=== PATIENT | female | born 2000 | race Caucasian/White ===

== ENCOUNTER 2023-11-06 15:35 | Emergency (ER) | payer BC, SELFPAY ==
[2023-11-06 15:54] VITALS: BP 125/73; PULSE 80; RESP 16; TEMP 36.8; O2SAT 98; BMI 22.0
--- NOTE | 2023-11-06 16:13 | ED.ABDPAIN ---
HPI - Abdominal Pain General Chief Complaint: Abdominal Pain Stated Complaint: Pain in center of ab-Stiff back-PCP referred Time Seen by Provider: 11/06/23 16:00 History of Present Illness HPI narrative: This 23-year-old female comes in reporting upper epigastric pain that began this morning and became very severe. Since then it has been coming and going and seems to be a bit related to taking food. Currently she is not having any pain. She does not describe any fevers, nausea, vomiting, diarrhea, or dysuria. She has otherwise been in good health. Related Data Home Medications Medication Instructions Recorded Confirmed oxcarbazepine 600 mg tablet 600 mg PO BID 04/29/22 11/06/23 ubrogepant 100 mg tablet (Ubrelvy) 100 mg PO ONCE PRN 04/29/22 11/06/23 Previous Rx's Medication Instructions Recorded dapsone 5 % topical gel 1 applic topical BID #90 grams 07/03/23 doxycycline hyclate 100 mg tablet 100 mg PO BID #180 tabs 07/03/23 metformin 500 mg tablet 500 mg PO BID #180 tabs 07/03/23 tazarotene 0.1 % topical cream 1 applic topical QDAY #60 grams 07/03/23 (Tazorac) hydrocodone 5 mg-acetaminophen 325 1 tab PO Q4-6H PRN pain #15 tabs 11/06/23 mg tablet ketorolac 10 mg tablet 10 mg PO Q8H 5 days #15 tabs 11/06/23 Allergies Allergy/AdvReac Type Severity Reaction Status Date / Time COVID-19 vaccine, Allergy Intermediate Hives Verified 11/06/23 15:50 Ad26.COV2.S (Jans sulfamethoxazole Allergy Intermediate Hives Verified 11/06/23 15:50 [From Bactrim] trimethoprim [From Bactrim] Allergy Intermediate Hives Verified 11/06/23 15:50 Review of Systems Status of ROS Reports: 10 or more systems reviewed and unremarkable except as noted in History and below Narrative Constitutional: No fevers, no weight gain or loss. Eyes: No discharge. No vision changes. HENT: No congestion, no sore throat, no ear pain. Cardiovascular: No chest pain, no palpitations. Respiratory: No shortness of breath, no wheezes, no cough. Gastrointestinal: No vomiting, no diarrhea. Upper epigastric abdominal pain as described above. Genitourinary: No dysuria, no hematuria. Musculoskeletal: Normal range of motion. Skin: No rashes, no pruritis. Neurological: No dizziness, weakness, sensory change, speech change. Endo/Heme/Allergies: No bruising or bleeding. No polydipsia. Pysch: no suicidality, no anxiety, no insomnia. All other systems reviewed and are negative. [facility] Medical History (Updated 11/06/23 @ 18:14 by Fly Beasley MD) Sudden hearing loss (10/2021) ?H91.20 - Sudden idiopathic hearing loss, unspecified ear (ICD-10) Seizure disorder ?G40.909 - Epilepsy, unspecified, not intractable, without status epilepticus (ICD-10) Acne ?L70.9 - Acne, unspecified (ICD-10) Surgical History (Updated 09/18/23 @ 12:36 by Mary Mendenhall) History of tonsillectomy and adenoidectomy (11/20/18) ?Z90.89 - Acquired absence of other organs (ICD-10) Family History (Updated 09/18/23 @ 12:41 by Mary Mendenhall) Mother Multiple sclerosis Bipolar disorder Maternal Grandmother Breast cancer Social History Smoking Status: Never smoker Do you use any of these nicotine containing products: None How often do you have a drink containing alcohol: never How often do you have six or more drinks on one occasion: Never AUDIT-C Alcohol total score: 0 Non-prescribed substance use: denies use Exam Narrative: Exam Narrative: Constitutional: Well-developed, well-nourished, no acute distress. HEENT: Normocephalic, atraumatic. Neck: Normal range of motion. Nontender. Supple. Heart: Regular. No murmurs. Normal rate. Intact distal pulses. Lungs: Clear to auscultation. No chest discomfort. No wheezes, rhonchi, or rales. Abdomen: Normal bowel sounds. Nontender. No rebound tenderness. Genitalia: Deferred. Back: No midline tenderness. Normal range of motion. Extremities: Normal range of motion. No injury. Skin: Intact. No rash. Warm. No erythema or pallor. Neurologic: No altered sensation. No weakness. Alert and oriented. Nursing notes and vitals signs are reviewed. Const: Vital Signs, click to edit/add: Vital Signs - 24 hr 11/06/23 15:54 Temperature 98.3 F Pulse Rate [Pulse Oximeter] 80 Respiratory Rate 16 Blood Pressure [Ri ght Upper Arm] 125/73 Pulse Oximetry 98 Oxygen Delivery Me thod Room Air Course Vital Signs Vital signs: Initial Vital Signs Temperature 98.3 F 11/06/23 15:54 Temperature Source Temporal Artery Scan 11/06/23 15:54 Pulse Rate 80 11/06/23 15:54 Pulse Rhythm Regular 11/06/23 15:54 Pulse Strength 3+ Normal 11/06/23 15:54 Respiratory Rate 16 11/06/23 15:54 Blood Pressure 125/73 11/06/23 15:54 Blood Pressure Mean 90 11/06/23 15:54 Blood Pressure Position Sitting 11/06/23 15:54 Pulse Oximetry 98 11/06/23 15:54 Oxygen Delivery Method Room Air 11/06/23 15:54 Vital Signs Temperature 98.3 F 11/06/23 15:54 Pulse Rate 80 11/06/23 15:54 Respiratory Rate 16 11/06/23 15:54 Blood Pressure 125/73 11/06/23 15:54 Pulse Oximetry 98 11/06/23 15:54 Oxygen Delivery Method Room Air 11/06/23 15:54 Temperature 98.3 F 11/06/23 15:54 Pulse Rate 80 11/06/23 15:54 Respiratory Rate 16 11/06/23 15:54 Blood Pressure 125/73 11/06/23 15:54 Pulse Oximetry 98 11/06/23 15:54 Oxygen Delivery Method Room Air 11/06/23 15:54 MDM - Abdominal Pain MDM Narrative Medical decision making narrative: This patient comes in with recurrent severe abdominal pain in the upper epigastric region that began this morning. She states that this pain seems to be related to taking food. She arrives here with no pain currently and has normal vital signs. Ultrasound of the right upper quadrant does show an evidence of a large stone with some sludging of the bile. Common bile duct and gallbladder wall are normal. Lab results are acquired and she is not showing any sign of obstruction or infection. Additionally her lipase level is normal. This patient is okay to be discharged home and is encouraged to make a follow-up appointment with surgery Clinic. She did received prescription for 15 tablets each of [place] and Toradol for pain relief. Lab Data Labs: Lab Results 11/06/23 Range/Units 17:00 WBC 8.73 (4.50-11.00) K/uL RBC 4.83 (4.00-5.20) m/uL Hgb 15.0 (12.0-16.0) gm/dL Hct 43.0 (33.0-51.0) % MCV 89 (80-100) fL MCH 31 (26-34) pg MCHC 35 (32-36) gm/dL RDW Coeff of Kavin 11.5 (11.5-15.5) % Plt Count 271 (140-440) K/uL Neut % (Auto) 69.7 (42.0-72.0) % Lymph % (Auto) 24.6 (20-44) % [place] % (Auto) 5.6 (0.0-11.0) % Eos % (Auto) 0.0 (0.0-7.0) % Baso % (Auto) 0.0 (0.0-3.0) % Neut # (Auto) 6.08 (1.7-7.0) K/uL Lymph # (Auto) 2.15 (0.90-2.90) K/uL [place] # (Auto) 0.50 (0.00-0.90) K/UL Eos # (Auto) 0.00 (0.00-0.50) K/uL Baso # (Auto) 0.00 (0.00-0.30) K/uL Abs Immat Gran (auto) 0.01 (0.00-0.30) K/uL Imm/Tot Granulo (auto) 0.1 % Sodium 137 (135-149) mmol/L Potassium 4.1 (3.6-5.1) mmol/L Chloride 102 (96-114) mmol/L Carbon Dioxide 23 (20-32) mmol/L Anion Gap 12 (7-15) mEq/L BUN 9 (5-24) mg/dL Creatinine 0.5 (0.5-1.5) mg/dL Estimated Creat Clear 175.02 Estimated GFR 134 ml/min Glucose 101 (60-115) mg/dL Calcium 9.5 (8.4-10.6) mg/dL Total Bilirubin 0.5 (0.1-1.5) mg/dL Direct Bilirubin 0.2 (0.0-0.5) mg/dL AST 30 (12-35) U/L ALT 44 H (4-35) U/L Alkaline Phosphatase 59 (40-150) U/L Total Protein 8.0 (6.0-8.3) g/dL Albumin 5.2 H (3.3-5.0) g/dL Lipase 123 (23-300) U/L Discharge Plan Discharge Clinical Impression: Cholelithiasis Patient Disposition: Home, Self-Care Condition: Stable Additional Instructions: Take medication as prescribed and needed. Follow up with surgery Clinic for ongoing management. Call [phone] for appointment. Return if worsening. Prescriptions: New hydrocodone-acetaminophen 5-325 mg tablet 1 tab PO Q4-6H PRN (Reason: pain) Qty: 15 0RF ketorolac 10 mg tablet 10 mg PO Q8H 5 Days Qty: 15 0RF No Action oxcarbazepine 600 mg tablet 600 mg PO BID Ubrelvy 100 mg tablet 100 mg PO ONCE PRN metformin 500 mg tablet 500 mg PO BID Qty: 180 3RF doxycycline hyclate 100 mg tablet 100 mg PO BID Qty: 180 3RF dapsone 5 % gel 1 applic topical BID Qty: 90 1RF Rx Instructions: rub in gently and completely tazarotene [Tazorac] 0.1 % cream 1 applic topical QDAY Qty: 60 1RF Follow Up/Referrals: Darleen Dillard PA-C [Primary Care Provider] - Stand Alone Forms: [facility] Info Instructions
--- NOTE | 2023-11-06 16:33 | CRLHL7_ITS ---
For Patients: As a result of the Century Cures Act, medical imaging exams and procedure reports are released immediately into your electronic medical record. You may view this report before your referring provider. If you have questions, please contact your health care provider. INDICATION: Right upper quadrant abdomen pain. TECHNIQUE: Ultrasound abdomen limited. Sonographic images of the right upper quadrant were obtained using atkinson-scale and color flow images. COMPARISON: None. FINDINGS: Liver: Normal in size and echotexture. No suspicious masses. No intrahepatic biliary dilatation. Portal vein is patent with color-flow. Gallbladder: Gallstones present. Normal wall thickness. No pericholecystic fluid. Common bile duct: 3 mm. Pancreas: Visualized portions are grossly unremarkable. Right kidney: Normal in size. Normal echotexture and cortex. No suspicious masses, stones, or hydronephrosis. Vasculature: Proximal abdominal aorta and IVC are unremarkable. IMPRESSION: Cholelithiasis. Dictated by Oscar Morrison MD @ 11/06/2023 5:27:49 PM (Electronically Signed)
[2023-11-06 17:10] LABS: Immature Granulocytes Abs Auto 0.01 K/uL (0.00-0.30); Immature Granulocytes Pct Auto 0.1 %; Lymphocytes Absolute Auto 2.15 K/uL (0.90-2.90); Lymphocytes Percent Auto 24.6 % (20-44); Mean Corpuscular HGB Conc 35 gm/dL (32-36); Mean Corpuscular Hemoglobin 31 pg (26-34); Mean Corpuscular Volume 89 fL (80-100); Monocytes Percent Auto 5.6 % (0.0-11.0); Neutrophils Absolute Auto 6.08 K/uL (1.7-7.0); Neutrophils Percent Auto 69.7 % (42.0-72.0); Platelet Count* 271 K/uL (140-440); RDW Coefficient of Variation % 11.5 % (11.5-15.5); Red Blood Count 4.83 m/uL (4.00-5.20); White Blood Count* 8.73 K/uL (4.50-11.00)
[2023-11-06 17:20] LABS: Albumin* 5.2 g/dL (3.3-5.0); Chloride* 102 mmol/L (96-114); Potassium* 4.1 mmol/L (3.6-5.1); Sodium* 137 mmol/L (135-149)
[2023-11-06 17:23] LABS: Alkaline Phosphatase* 59 U/L (40-150); Anion Gap 12 mEq/L (7-15); Aspartate Amino Transferase* 30 U/L (12-35); Bilirubin Direct* 0.2 mg/dL (0.0-0.5); Bilirubin Total* 0.5 mg/dL (0.1-1.5); Blood Urea Nitrogen* 9 mg/dL (5-24); Calcium* 9.5 mg/dL (8.4-10.6); Carbon Dioxide* 23 mmol/L (20-32); Creatinine* 0.5 mg/dL (0.5-1.5); Est. Creatinine Clearance* 175.02; Estimated Glomerular Filt Rate 134 ml/min; Glucose* 101 mg/dL (60-115); Lipase* 123 U/L (23-300)
[2023-11-06 17:24] LABS: Alanine Aminotransferase* 44 U/L (4-35); Slide Review Reflex No
== END 2023-11-06 18:20 | disposition home or self-care (01) ==
PROVIDERS: Emergency Provider Emergency Medicine Emergency Medical Services; PCP Physician Assistant Medical
DX: K80.20 Calculus of gallbladder without cholecystitis without obstruction (principal)
CPT/HCPCS: 36415; 76705; 80048; 80076; 83690; 85025; 99284

== ENCOUNTER 2023-12-01 12:35 | Day surgery (SDC) | payer BC, SELFPAY ==
[2023-12-01] VITALS (12 sets, daily range): BP systolic 100–135; BP diastolic 58–84; PULSE 54–85; RESP 16–18; TEMP 36.3–37.1; O2SAT 98–100; BMI 21.9
[2023-12-01] MEDS: LACTATED RINGERS 1000 ML 1,000 ML 100 ML IV (13:29)
[2023-12-01] MEDS: SODIUM CHLORIDE 0.9 % (FLUSH) 10 ML SYRINGE IVF (13:29)
--- NOTE | 2023-12-01 13:36 | W.ANESCHARGE ---
Anesthesia Charges Start Date/Time Anesthesia Start Date: 12/01/23 Anesthesia Start Time: 13:42 Stop Date/Time Anesthesia Stop Date: 12/01/23 Anesthesia Stop Time: 14:56
[2023-12-01] MEDS: CEFAZOLIN 1 GM inj IVP (13:51)
[2023-12-01] MEDS: BUPIVACAINE 0.25% 30 ML INJECTION (14:39)
--- NOTE | 2023-12-01 14:58 | W.ANESCHARGE ---
Anesthesia Charges Start Date/Time Anesthesia Start Date: 12/01/23 Anesthesia Start Time: 13:42 Stop Date/Time Anesthesia Stop Date: 12/01/23 Anesthesia Stop Time: 14:56
[2023-12-01] MEDS: fentaNYL 100 MCG/2 ML inj 50 MCG IVP (15:04)
[2023-12-01] MEDS: HYDROCODONE-ACETAMIN 5-325 MG 1 TAB PO ×2 (15:34→16:24)
--- NOTE | 2023-12-01 15:40 | W.PM.H&PU ---
History & Physical Update History & Physical Update H&P Reviewed and patient assessed: No changes noted
--- NOTE | 2023-12-01 15:41 | P.GSOP_ITS ---
Operative Note Date of procedure: 12/01/23 Pre-op diagnosis: Biliary colic Post-op diagnosis: Same Type of Procedure: Laparoscopic cholecystectomy Indications: The patient is a 23-year-old female who developed right upper quadrant pain. Workup revealed cholelithiasis. After discussion of symptoms an options she was offered cholecystectomy and she agreed to proceed. Procedure Description: After discussing the risks and benefits of the procedure, the patient signed informed consent.? The operative site was marked and the patient was brought to the operating room and placed on the operating table in supine position.? Care was taken to pad the patient's pressure points.?? The patient was then intubated by anesthesia.?? The operative site was then prepped and draped in the usual sterile fashion.? A time-out was then performed. Entrance to the abdomen was gained via a 5 mm Visiport in the left upper quadrant. The abdomen was insufflated and briefly surveyed for signs of injury. There was none. A 10 mm umbilical port was placed as well as 2 working ports along the right costal margin, all under direct vision. The patient was then placed in reverse Trendelenburg position with the right side up. The gallbladder fundus was grasped and retracted cephalad. The infundibulum was grasped. A combination of hook cautery and blunt dissection was used to carefully dissect out the cystic duct and artery until they could clearly be seen entering the gallbladder without any intervening structures. The gallbladder was dissected off the cystic plate to achieve the critical view. Once this was achieved the cystic duct and artery were each clipped with 2 clips proximally and 1 clip di stally and transected with the scissors. The gallbladder was then taken off of the liver bed and removed from the abdomen using an Endo-Catch bag. The gallbladder bed was surveyed for hemostasis which appeared adequate. The ports were removed and the umbilical port fascia was closed with 0 Vicryl. The skin was closed with absorbable subcuticular suture. Instrument sponge and needle counts were correct at the end of the case. The patient was then woken and transferred to the PACU in stable condition. Sterile dressings were then applied ? The patient tolerated the procedure well. Findings: Cholelithiasis without evidence of acute cholecystitis Anesthesia: GETA Surgeon: Audra Casillas MD Estimated blood loss (mL): 5 Specimen: Gallbladder Condition: stable Disposition: PACU
== END 2023-12-01 17:07 | disposition home or self-care (01) ==
PROVIDERS: Surgery; PCP Physician Assistant Medical; Visit Provider Surgery
PROC: 0FT44ZZ Resection of Gallbladder, Percutaneous Endoscopic Approach (ICD-10-PCS; CPT 47562; principal; 2023-12-01 13:15)
DX: K80.10 Calculus of gallbladder with chronic cholecystitis without obstruction (principal)
CPT/HCPCS: 47562; 00790; 81025; 88304; A9270; J0330; J0665; J0690; J1885; J2250; J2704; J2710; J3010; J7120

== ENCOUNTER 2023-12-23 11:28 | Outpatient (CLI) | payer BC, SELFPAY | END 2023-12-23 11:29 | disposition home or self-care (01) | PROVIDERS: PCP Physician Assistant Medical; Visit Provider Surgery | DX: R10.13 Epigastric pain (principal); Z90.49 Acquired absence of other specified parts of digestive tract | CPT/HCPCS: 80076 ==

== ENCOUNTER 2023-12-29 11:48 | Outpatient (CLI) | payer BC, SELFPAY | END 2023-12-29 11:49 | disposition home or self-care (01) | LOC: NFLDREF 12-31 06:49 | PROVIDERS: PCP Physician Assistant Medical; Referring Provider Physician Assistant Medical; Visit Provider Physician Assistant Medical | DX: R19.7 Diarrhea, unspecified (principal) | CPT/HCPCS: 87045; 87046; 87427; 87493 ==

== ENCOUNTER 2024-05-28 09:28 | Outpatient (CLI) | payer BC, SELFPAY ==
--- NOTE | 2024-05-28 10:00 | CRLHL7_ITS ---
For Patients: As a result of the Century Cures Act, medical imaging exams and procedure reports are released immediately into your electronic medical record. You may view this report before your referring provider. If you have questions, please contact your health care provider. Indication: PERIUMBILICAL ABDOMEN PAIN, Diarrhea, CRAMPING Technique: abdomen pelvis with Isovue 370 85cc and water prep contrast Please note that all CT scans at this facility use dose modulation, iterative reconstruction, and/or weight-based dosing when appropriate to reduce radiation dose to as low as reasonably achievable. Comparison: 03/25/2018 Findings: Mild dependent atelectasis in both lung bases. No pleural effusion. Liver parenchyma is unremarkable. The gallbladder is absent. No biliary obstruction. The pancreas is normal. Normal spleen. The adrenal glands are normal. Normal kidneys. Bladder normal. IUD within the endometrium. Ovaries unremarkable. No bowel obstruction, free air, adenopathy or free fluid. The appendix is normal. 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 No abdominal wall hernia. No hiatal hernia. Impression: No bowel obstruction or evidence of enteritis/colitis. Gallbladder absent. No biliary obstruction. Normal appendix. Please note that all CT scans at this facility use dose modulation, iterative reconstruction, and/or weight-based dosing when appropriate to reduce radiation dose to as low as reasonably achievable. Dictated by Mal Brooke MD @ 05/28/2024 12:52:51 PM (Electronically Signed)
== END 2024-05-28 09:29 | disposition home or self-care (01) ==
LOC: CT 09:29
PROVIDERS: PCP Nurse Practitioner Family; Visit Provider Internal Medicine
DX: R10.33 Periumbilical pain (principal); R19.7 Diarrhea, unspecified
CPT/HCPCS: 74177; Q9967

== ENCOUNTER 2024-09-01 22:07 | Outpatient (REF) | payer BC, SELFPAY ==
[2024-09-01 22:55] LABS: Basophils Absolute Auto 0.01 K/uL (0.00-0.30); Basophils Percent Auto 0.1 % (0.0-3.0); Hematocrit 41.4 % (33.0-51.0); Hemoglobin* 14.7 gm/dL (12.0-16.0); Immature Granulocytes Abs Auto 0.05 K/uL (0.00-0.30); Immature Granulocytes Pct Auto 0.7 %; Lymphocytes Percent Auto 15.2 % (20-44); Mean Corpuscular HGB Conc 36 gm/dL (32-36); Mean Corpuscular Hemoglobin 30 pg (26-34); Mean Corpuscular Volume 85 fL (80-100); Monocytes Percent Auto 2.7 % (0.0-11.0); Neutrophils Percent Auto 81.3 % (42.0-72.0); Platelet Count* 268 K/uL (140-440); RDW Coefficient of Variation % 10.9 % (11.5-15.5); Red Blood Count 4.89 m/uL (4.00-5.20); White Blood Count* 6.72 K/uL (4.50-11.00)
[2024-09-01 23:01] LABS: Albumin* 4.8 g/dL (3.3-5.0); Chloride* 94 mmol/L (96-114)
[2024-09-01 23:02] LABS: Potassium* 4.3 mmol/L (3.6-5.1); Sodium* 130 mmol/L (135-149)
[2024-09-01 23:04] LABS: Anion Gap 10 mEq/L (7-15); Aspartate Amino Transferase* 24 U/L (12-35); Bilirubin Total* 0.2 mg/dL (0.1-1.5); Carbon Dioxide* 26 mmol/L (20-32); Creatinine* 0.5 mg/dL (0.5-1.5); Estimated Glomerular Filt Rate 133 ml/min; Total Protein* 7.3 g/dL (6.0-8.3)
[2024-09-01 23:05] LABS: Alanine Aminotransferase* 26 U/L (4-35); Alkaline Phosphatase* 82 U/L (40-150); Blood Urea Nitrogen* 8 mg/dL (5-24); Calcium* 9.6 mg/dL (8.4-10.6); Glucose* 110 mg/dL (60-115)
[2024-09-01 23:09] LABS: Slide Review Reflex No
[2024-09-01 23:21] LABS: Vitamin D 25 Hydroxy* 48 ng/mL (30-80)
[2024-09-04 16:14] LABS: OXCARB Metabolite 30.3 ug/mL (10.0-35.0)
== END 2024-09-01 22:08 | disposition home or self-care (01) ==
LOC: NPINS 22:07
PROVIDERS: PCP Nurse Practitioner Family; Visit Provider Psychiatry & Neurology Neurology
DX: R56.9 Unspecified convulsions (principal); G43.709 Chronic migraine without aura, not intractable, without status migrainosus; G44.86 Cervicogenic headache; F41.9 Anxiety disorder, unspecified; G93.40 Encephalopathy, unspecified
CPT/HCPCS: 80053; 80183; 82306; 85025

== ENCOUNTER 2024-10-21 14:53 | Outpatient (CLI) | payer BC, SELFPAY ==
[2024-10-24 04:52] LABS: HPV Source Cervix; HPV, High Risk by TMA Not Detected
== END 2024-10-21 14:54 | disposition home or self-care (01) ==
PROVIDERS: PCP Nurse Practitioner Family; Visit Provider Physician Assistant
DX: Z12.4 Encounter for screening for malignant neoplasm of cervix (principal); Z11.51 Encounter for screening for human papillomavirus (HPV)
CPT/HCPCS: 87624; 87625; 88141; 88142

== ENCOUNTER 2025-01-18 09:06 | Emergency (ER) | payer BC, SELFPAY ==
--- OUTSIDE RECORDS SUMMARY | 2025-01-18 09:08 | XMS_ITS | Clinical Summary ---
Author Organization [facility] Address [address] [place] [address] Care Team Providers Care Facility Technician Name Role Phone Shiva Granados MD Primary Care Provider [phone] Source Comments You are receiving this document as you are listed as the primary care provider,follow-up provider, or the patient has been referred to you for consultation.This is in compliance with the Medicare and[facility] EHR Incentive Program,which states Providers who transition their patient to another setting of careor provider of care or refers their patient to another provider of care shouldprovide summary care record for each transition of care or referral. [facility] Allergies No known active allergies Medications ibuprofen (AKA MOTRIN) 100 MG tablet Take 100 mg by mouth every 6 hours as needed. 06/01/2013 Active OXcarbazepine (AKA TRILEPTAL) 600 MG tablet Indications : PN: 09/01/2014 Active omeprazole (PRILOSEC) 20 MG capsule Take 1 Cap by mouth daily. Take 1 hour before a meal. 30 Cap 3 08/19/2016 Active SUMAtriptan (IMITREX) 100 MG tablet 0 09/12/2016 Active Active Problems Problem Noted Date Diagnosed Date Verruca 06/17/2012 Seizure disorder 12/25/2011 Keratosis pilaris 12/12/2011 Immunizations Immunization Administration Dates Next Due 4vHPV (Gardasil) 10/10/2014,06/19/2012, 2 DT Ped 12/20/2004,12/29/2000 DTaP 02/04/2000,1999,1999 Flu Vac Preserv Free (3+yrs) 07/21/2007,07/23/20 06,08/17/2005 HepA Ped/Adol (1-18 yrs) 09/09/2017,06/19/2012,0 12/25/2011 HepB Adult (Engerix-B, 20+ y rs, 3 dose series) 09/09/2000,02/04/2000 HepB, Unspecified Formulation 12/29/2000 Hib (ActHIB) 12/29/2000, 0,1999,1999 IPV (Polio) 12/20/2004, 0,1999,1999 Influenza IIV4 (Quadrivalent ) 0.5mL (36781) 10/10/2014 Influenza LAIV (Nasal, 2-49 yrs) 012,08/04/2010,07/06/2009,2007 Influenza, Unspecified Formulation 07/18/2003 MCV4 (Menactra) 10/10/2014 MCV4 Menveo 2m.+ (two vial) 09/09/2017 MMR 12/20/2004,11/03/2000 Pneumococcal 7, PED 11/03/2000,09/09/2000,1999 TDAP (ADACEL) 12/25/2011 Varicella 12/25/2011,11/03/2000 Family History Medical History Relation Name Comments Allergies Father fish, peanuts, peas Asthma Father Multiple Sclerosis Mother Myocardial Infarction Maternal Grandfather Hypertension Maternal Grandmother Arthritis Paternal Grandfather Arthritis Paternal Grandmother Relation Name Status Comments Father Alive Mother Alive Brother Max Alive Maternal Grandfather Alive Maternal Grandmother Alive Paternal Grandfather Alive Paternal Grandmother Alive Social History Tobacco Use Types Packs/Day Years Used Date Smoking Tobacco: Never Smokeless Tobacco: Never Alcohol Use Standard Drinks/Week Comments No 0 (1 standard drink = 0.6 oz pur e alcohol) Comments Unknown Sex and Gender Information Value Date Recorded Sex Assigned at Not on file Legal Sex Female 6:54 AM CDT Gender Identity Not on file Sexual Orientation Not on file Last Filed Vital Signs Vital Sign Reading Time Taken Comments Blood Pressure 114/79 09/16/2016 12:28 PM 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 Pulse 90 09/16/2016 12:28 PM 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 Temperature 36.7 C (98.1 F) 09/09/2017 1:21 PM 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 Respiratory Rate 16 09/16/2016 12:28 PM 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 Oxygen Saturation 95% 09/19/2014 8:23 AM 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 Inhaled Oxygen Concentration - - Weight 70.8 kg (156 lb 3 oz) 09/09/2017 1:21 PM 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 Height 166.4 cm (5' 5.5) 07/11/2015 12:56 PM CD T Body Mass Index - - Plan of Treatment Health Maintenance Due Date Last Done Comments Cervical Cancer Screening Due 1999 Chlamydia 1999 Hep C Screening (Preventive Services) 1999 HIV Screening (Preventive Services) 2015 Adult Preventive Visit 2017 DTaP/Tdap/Td Vaccine (6 - Tdap) 12/24/2021 12/25/2011, 12/20/2004, 12/29/2000, Additional history exists COVID-19 Vaccine ( season) 2024 Influenza Vaccine (#1) 2024 5, 10/15/2011, 08/04/2010, Additional history exists Zoster/Shingles Vaccine (1 of 2) 2049 Pneumococcal Vaccine Aged Out 11/03/2000, 09/09/2000, 02/04/2000 No longer eligible based on patient's age to complete this topic HepB Vaccine Completed 12/29/2000, 08/29, 02/04/2000 Hib Vaccine Completed 12/29/2000, 04/2000, 1999, Additional history exists IPV (Polio) Vaccine Completed 12/20/2004, 09/09/2000, 1999, Additional history exists Varicella Vaccine Completed 12/25/2011, 11/03/2000 HPV Vaccine Completed 10/10/2014, 05/31, 12/25/2011 HepA Vaccine Completed 09/09/2017, 05/31, 12/25/2011 MCV4 Vaccine Completed 09/09/2017, 10/10/2014 Meningococcal B Vaccine Aged Out No l onger eligible based on patient's age to complete this topic Insurance [facility] Care Teams Facility Technician Relationship Specialty [place] [address] [place] [address] PCP - General 12/18/11
--- OUTSIDE RECORDS SUMMARY | 2025-01-18 09:08 | XMS_ITS | Clinical Summary ---
Author Organization [facility] Address [address] [place] [id number] Care Team Providers Care Knocker Off Name Role Phone Darleen Dillard PA-C Primary Care Provider [phone] Allergies No known active allergies Medications OXcarbazepine (TRILEPTAL) 600 mg tablet Take 1.5 tablets by mouth 2 times daily. 0 08/17/2013 Active topiramate (TOPAMAX) 25 mg tablet Take 2 tablets by mouth once daily. 06/14/2020 Active Active Problems No known active problems Immunizations Immunization Administration Dates Next Due DTaP 12/20/2004, 1,02/04/2000,1999,1999 Hepatitis A (Peds) 06/19/2012,12/25/2011 Hepatitis B (Peds) 12/29/2000,09/09/2000, 000 Hib Conjugate, Unspecified 12/29/2000,,1999,1999 Human Papilloma Virus Vaccine 08/17/2013, 012,12/25/2011 Inactivated Polio Vaccine 12/20/2004,08/2000,1999,1999 MMR 12/20/2004,11/03/2000 Pneumococcal conj 7-Valent ( Prevnar 7) 11/03/2000,09/09/2000,02/04/2000 Tdap 12/20/2004 Varicella Vaccine 12/25/2011,11/03/2000 Social History Tobacco Use Types Packs/Day Years Used Date Smoking Tobacco: Never Smokeless Tobacco: Never Tobacco Cessation:Counseling Given: Yes Alcohol Use Standard Drinks/Week Comments No 0 (1 standard drink = 0.6 oz pur e alcohol) Comments No Sex and Gender Information Value Date Recorded Sex Assigned at Not on file 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 Gender Identity Not on file Sexual Orientation Not on file Obstetrics History Last Filed Vital Signs Vital Sign Reading Time Taken Comments Blood Pressure 129/80 07/04/2020 11:22 AM CDT Pulse 85 07/04/2020 11:22 AM CDT Temperature 36.7 C (98.1 F) 07/04/2020 11:22 AM CDT Respiratory Rate 18 07/04/2020 11:22 AM CDT Oxygen Saturation 99% 07/04/2020 11:22 AM CDT Inhaled Oxygen Concentration - - Weight 63.5 kg (140 lb) 07/04/2020 11:22 AM CDT Height 170.2 cm (5' 7) 07/04/2020 11:22 AM CDT Body Mass Index 21.93 07/04/2020 11:22 AM CDT Plan of Treatment Health Maintenance Due Date Last Done Comments Tdap 2010 12/20/2004 Depression screening for age 12+ 2011 HIV for age 15-65 2014 BMI (ht and wt on same day) for age 18+ 2017 Hepatitis C screening for ag e 18-79 2017 Tetanus booster 2019 12/20/2004 Pap test for age 21-65 2020 COVID-19 vaccine series (2023- season) 2024 Influenza Vaccine (Season Ended) 2025 Pneumococcal series for age 6-49 Aged Out 11/03/2000, 09/09/2000, 02/04/2000 No longer eligible based on patient's age to complete this topic HPV series for age 9-26 Completed 08/17/20 13, 06/19/2012, 12/25/2011 Insurance [facility] * Guarantor: DAJA GARZA Account Type Relation to Patient Date of Phone Billing Address Personal/Family [address] [place] [address] Care Teams Knocker Off Relationship Specialty Start Date End Date Darleen Dillard PA-C [address] [place], [place] [id number] PCP - General Emergency Medicine 07/04/20
[2025-01-18 09:09] VITALS: BP 156/116; PULSE 103; RESP 18; TEMP 37.1; O2SAT 100; BMI 25.8
--- NOTE | 2025-01-18 09:29 | ED.ALLEREA ---
HPI - Allergic Reaction General Date Seen: 01/18/25 Chief complaint: Allergic Reaction Stated complaint: hives, swelling-sent by triage Time Seen by Provider: 01/18/25 09:19 Source: patient Mode of arrival: ambulatory Limitations: no limitations History of Present Illness HPI narrative: Patient is a 24-year-old female presenting to emergency department for concerns of allergic reaction. She states she was started on lamotrigine 3 weeks ago then about a week and half ago she started having hives and some mild facial swelling. She stopped the lamotrigine and was started on different epilepsy med 4 days ago. She felt like the hives improved over the weekend but did not ever fully go way. Started last night she has started noticing worsening facial swelling with the hives did not see much more different. Does have some mild off sensation on the left side of her neck but does not feel short of breath. Denies chest pain, abdominal pain, nausea, fevers, chills, lightheadedness, dizziness. Has a few other allergies but has never had symptoms like this before. Took Claritin yesterday without much improvement. No other concerns noted. Related Data Home Medications ?Medication ?Instructions ?Recorded ?Confirmed azelaic acid 15 % topical gel 1 applic topical BID 05/13/24 01/18/25 cholecalciferol (vitamin D3) 50 50 mcg PO QDAY 05/13/24 01/18/25 mcg (2,000 unit) capsule multivitamin (Daily Multi-Vitamin 1 tab PO QAM 05/13/24 01/18/25 tablet) omega-3 fatty acids-fish oil 360 1 cap PO QDAY 05/13/24 01/18/25 mg-1,200 mg capsule (Fish Oil) tizanidine 2 mg tablet 2 mg PO Q8H PRN 05/13/24 01/18/25 spironolactone 50 mg tablet 100 mg PO QDAY 10/21/24 01/18/25 dicyclomine 20 mg tablet 20 mg PO QID PRN 10/27/24 01/18/25 hyoscyamine sulfate 0.125 mg tablet 0.125 mg PO QID PRN 10/27/24 01/18/25 oxcarbazepine 600 mg tablet 600 mg PO BID 10/27/24 01/18/25 lacosamide 50 mg tablet 50 mg PO BID 01/18/25 01/18/25 nortriptyline 25 mg capsule 25 mg PO QPM 01/18/25 01/18/25 Previous Rx's ?Medication ?Instructions ?Recorded epinephrine 0.3 mg/0.3 mL 0.3 mg (0.3 mL) IM Q5-15M PRN #2 ea 01/18/25 injection, auto-injector famotidine 20 mg tablet (Pepcid) 20 mg PO DAILY #4 tabs 01/18/25 prednisone 20 mg tablet 40 mg (2 x 20 mg) PO DAILY #8 tabs 01/18/25 Allergies Allergy/AdvReac Type Severity Reaction Status Date / Time COVID-19 vaccine, Allergy Intermediate Hives Verified 01/18/25 09:17 Ad26.COV2.S (Jans sulfamethoxazole (From Allergy Intermediate Hives Verified 01/18/25 09:17 Bactrim) trimethoprim (From Bactrim) Allergy Intermediate Hives Verified 01/18/25 09:17 Review of Systems Status of ROS Reports: 10 or more systems reviewed and unremarkable except as noted in History and below PFSH [facility] Medical History Sudden hearing loss (10/2021) ?H91.20 - Sudden idiopathic hearing loss, unspecified ear (ICD-10) Seizure disorder ?G40.909 - Epilepsy, unspecified, not intractable, without status epilepticus (ICD-10) Acne ?L70.9 - Acne, unspecified (ICD-10) Surgical History History of tonsillectomy and adenoidectomy (11/20/18) ?Z90.89 - Acquired absence of other organs (ICD-10) Family History Mother Multiple sclerosis Bipolar disorder Maternal Grandmother Breast cancer Social History Narrative: works in [employer] and [employer] In [employer]. Non-smoker, rare alcohol Smoking Status: Never smoker Do you use any of these nicotine containing products: None How often do you have a drink containing alcohol: never How often do you have six or more drinks on one occasion: Never AUDIT-C Alcohol total score: 0 Non-prescribed substance use: denies use Caffeine: No Are you using contraception or practicing any form of control: Yes (IUD) Exam Narrative: Exam Narrative: Const: Well-nourished, Well-developed, in mild distress Eyes: PERRL, no conjunctival injection, and symmetrical lids HENT: Atraumatic external nose and ears. Moist mucous membranes. Neck: Symmetric, trachea midline, No thyromegaly. CVS: RRR, No murmurs or gallops. Peripheral pulses 2+ and equal in all extremities RESP: Unlabored respiratory effort. Clear to auscultation bilaterally. GI: Nontender/Nondistended, No rebound or guarding. MSK:Extremities w/o deformity, Normal Active ROM Skin: Warm, Dry. No rashes or lesions. Urticaria seen and bilateral upper portion for upper extremities and left flank Neuro: Normal Muscle tone, No focal neurological deficits. Psych: Awake, Alert, & Oriented x3. Appropriate mood and affect. Const: Vital Signs, click to edit/add: Vital Signs - 24 hr 01/18/25 09:09 01/18/25 10:23 01/18/25 10:46 Temperature 98.7 F 97.8 F Pulse Rate 85 Pulse Rate [Right Pulse Oximeter] 103 H 91 Respiratory Rate 18 18 18 Blood Pressure Blood Pressure [Ri ght Upper Arm] 156/116 H 132/82 Pulse Oximetry 100 99 100 Oxygen Delivery Me thod Room Air Room Air 01/18/25 10:46 01/18/25 12:07 Temperature 97.8 F 97.6 F Pulse Rate 89 Pulse Rate [Right Pulse Oximeter] 89 Respiratory Rate 18 18 Blood Pressure 135/82 Blood Pressure [Ri ght Upper Arm] 126/77 Pulse Oximetry 100 100 Oxygen Delivery Me thod Room Air Course Vital Signs Vital signs: Initial Vital Signs Temperature 98.7 F 01/18/25 09:09 Temperature Source Temporal Artery Scan 01/18/25 09:09 Pulse Rate 103 H 01/18/25 09:09 Pulse Rhythm Regular 01/18/25 09:09 Pulse Strength 3+ Normal 01/18/25 09:09 Respiratory Rate 18 01/18/25 09:09 Blood Pressure 156/116 H 01/18/25 09:09 Blood Pressure Mean 129 H 01/18/25 09:09 Blood Pressure Position Sitting 01/18/25 09:09 Pulse Oximetry 100 01/18/25 09:09 Oxygen Delivery Method Room Air 01/18/25 09:09 Vital Signs Temperature 98.7 F 01/18/25 09:09 Pulse Rate 103 H 01/18/25 09:09 Respiratory Rate 18 01/18/25 09:09 Blood Pressure 156/116 H 01/18/25 09:09 Pulse Oximetry 100 01/18/25 09:09 Oxygen Delivery Method Room Air 01/18/25 09:09 Temperature 97.6 F 01/18/25 12:07 Pulse Rate 89 01/18/25 12:07 Respiratory Rate 18 01/18/25 12:07 Blood Pressure 126/77 01/18/25 12:07 Pulse Oximetry 100 01/18/25 12:07 Oxygen Delivery Method Room Air 01/18/25 12:07 Medications Administered Medications: Discontinued Medications Generic Name Dose Route Start Last Admin Trade Name Freq PRN Reason Stop Dose Admin Diphenhydramine HCl 50 mg 01/18/25 09:27 01/18/25 09:35 Diphenhydramine 25 Mg Capsule PO 01/18/25 09:28 50 mg ONCE ONE Administration Epinephrine HCl 0.3 mg 01/18/25 10:09 01/18/25 10:13 Epinephrine 0.3 Mg Pen IM 01/18/25 10:10 0.3 mg ONCE ONE Administration Famotidine 20 mg 01/18/25 09:27 01/18/25 09:36 Famotidine 20 Mg Tablet PO 01/18/25 09:28 20 mg ONCE ONE Administration Prednisone 60 mg 01/18/25 09:27 01/18/25 09:37 Prednisone 20 Mg Tablet PO 01/18/25 09:28 60 mg ONCE ONE Administration MDM - Allergic Reaction MDM Narrative Medical decision making narrative: Patient is a 24-year-old female presenting to the emergency department for allergic reaction. Does appear to have urticaria. No other signs of anaphylaxis at this time. Will order some Pepcid, Benadryl, steroids. At this time I do not believe she requires epinephrine but will keep a close eye on her. Do not believe lab work is necessary. Patient's medication was given but short time after she did it is feel like her throat may be getting more swollen but she cannot say for certain. To this out is give her epinephrine. After the epi injection she does states she is feeling much better. Rash is improved. She no longer has the sensation in the back of her throat. We monitored her for 2 hours after the epinephrine and she continues to feel well. Vital signs are stable. She will be discharged. She is agreeable to this plan. Discharge Plan Discharge Clinical Impression: Allergic reaction Qualifiers: Encounter type: initial encounter Qualified Code(s): T78.40XA - Allergy, unspecified, initial encounter Patient Disposition: Home, Self-Care Condition: Improved Instructions: General Allergic Reaction (ED) Additional Instructions: The allergic reaction may be from the lamotrigine still being in your since stone. Does take time for to fully get cleared from her system. I recommend using the prednisone for next 4 days starting tomorrow and using Pepcid and Benadryl as needed. Start the Pepcid tomorrow also. If symptoms persist I recommend close follow-up with the primary care provider. If you start developing notable abdominal pain, nausea, chest pain, shortness of breath, lightheadedness associated with the rash return for re-evaluation. Use the EpiPen if these symptoms occur. Prescriptions: New prednisone 20 mg tablet 40 mg PO DAILY Qty: 8 0RF famotidine [Pepcid] 20 mg tablet 20 mg PO DAILY Qty: 4 0RF epinephrine 0.3 mg/0.3 mL auto-injector 0.3 mg IM Q5-15M PRNQty: 2 0RF Rx Instructions: do not exceed 3 doses per episode No Action azelaic acid 15 % gel 1 applic topical BID tizanidine 2 mg tablet 2 mg PO Q8H PRN omega-3 fatty acids-fish oil [Fish Oil] 360-1,200 mg capsule 1 cap PO QDAY cholecalciferol (vitamin D3) 50 mcg (2,000 unit) capsule 50 mcg PO QDAY multivitamin [Daily Multi-Vitamin] Tablet 1 tab PO QAM spironolactone 50 mg tablet 100 mg PO QDAY nortriptyline 25 mg capsule 25 mg PO QPM lacosamide 50 mg tablet 50 mg PO BID dicyclomine 20 mg tablet 20 mg PO QID PRN hyoscyamine sulfate 0.125 mg tablet 0.125 mg PO QID PRN oxcarbazepine 600 mg tablet 600 mg PO BID Follow Up/Referrals: Lorenza Hirsch, INGREDIENT SPECIALIST [Primary Care Provider] - Stand Alone Forms: [employer] Info Instructions
[2025-01-18] MEDS: diphenhydrAMINE 25 MG CAPSULE 50 MG PO (09:35)
[2025-01-18] MEDS: FAMOTIDINE 20 MG TABLET PO (09:36)
[2025-01-18] MEDS: predniSONE 20 MG TABLET 60 MG PO (09:37)
--- OUTSIDE RECORDS SUMMARY | 2025-01-18 10:01 | XMS_ITS | Clinical Summary ---
Author Organization [facility] Address [address] [place] [address] Care Team Providers Care Chart Changer Name Role Phone Shiva Granados MD Primary Care Provider [phone] Source Comments You are receiving this document as you are listed as the primary care provider,follow-up provider, or the patient has been referred to you for consultation.This is in compliance with the Medicare and[facility] Incentive Program,which states Providers who transition [...] 12/20/2004, 0,1999,1999 Influenza IIV4 (Quadrivalent ) 0.5mL (52481) 10/10/2014 Influenza LAIV (Nasal, 2-49 yrs) 012,08/04/2010,07/06/2009,2007 [...] Comments Blood Pressure 114/79 09/16/2016 12:28 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 Pulse 90 09/16/2016 12:28 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 Temperature 36.7 C (98.1 F) 09/09/2017 1:21 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 Respiratory Rate 16 09/16/2016 12:28 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 Oxygen Saturation 95% 09/19/2014 8:23 AM HOTBED OPERATOR Inhaled Oxygen Concentration - - Weight 70.8 kg (156 lb 3 oz) 09/09/2017 1:21 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 Height 166.4 cm (5' 5.5) 07/11/2015 12:56 [...] patient's age to complete this topic Insurance [facility] Care Teams Chart Changer Relationship Specialty [place] [address] [place] [address] PCP - General 12/18/11
--- OUTSIDE RECORDS SUMMARY | 2025-01-18 10:01 | XMS_ITS | Clinical Summary ---
Author Organization 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 * Guarantor: DAJA GARZA Account Type Relation to Patient Date of Phone Billing Address Personal/Family [address] [place] [address] Care Teams Thermoscrew Operator Relationship Specialty Start Date End Date Darleen Dillard PA-C [address] [place], [place] [id number] PCP - General Emergency Medicine 07/04/20
[2025-01-18] MEDS: EPINEPHrine 0.3 MG PEN IM (10:13)
[2025-01-18 10:23] VITALS: PULSE 85; RESP 18; O2SAT 99
[2025-01-18 10:46] VITALS: BP 132/82; BP 135/82; PULSE 89; PULSE 91; RESP 18; TEMP 36.6; O2SAT 100
[2025-01-18 12:07] VITALS: BP 126/77; PULSE 89; RESP 18; TEMP 36.4; O2SAT 100
== END 2025-01-18 12:45 | disposition home or self-care (01) ==
PROVIDERS: Emergency Provider Student in an Organized Health Care Education/Training Program; PCP Nurse Practitioner Family
DX: L50.0 Allergic urticaria (principal); T42.6X5A Adverse effect of other antiepileptic and sedative-hypnotic drugs, initial encounter
CPT/HCPCS: 96372; 99283; 99284; A9270; J0171; J7512